=== PATIENT | male | born 1975 | race Two or more races ===

== ENCOUNTER 2016-10-27 17:37 | Emergency (ER) | payer SELFPAY ==
[~2016-10-27] VITALS: Ht 182.9 cm; Wt 83.9 kg
--- NOTE | 2016-10-27 17:54 | NUR ---
EKG IN PROGRESS
[2016-10-27 17:57] VITALS: BP 133/94
== END 2016-10-27 18:04 | disposition home or self-care (01) ==
LOC: ER 17:38
DX: R42 Dizziness and giddiness (principal); Z76.5 Malingerer [conscious simulation]
CPT/HCPCS: 93005; 99283; A4606; Z7610

== ENCOUNTER 2016-11-12 03:36 | Emergency (ER) | payer OTHER ==
[~2016-11-12] VITALS: Ht 177.8 cm; Wt 63.5 kg
--- NOTE | 2016-11-12 03:50 | NUR ---
PT BIBSELF, AMBULATORY TO ER BED 8 PT C/O BILATERAL ELBOW PAIN X 1 DAY PT DENIES INJURY OR TRAUMA. PT AOX4 RR EVEN AND UNLABORED. NO SOB NOTED. NAD NOTED. NO NVD AT THIS TIME. PT GOWNED AND PLACED ON MONITOR WAITING FOR MD VINSON.
--- NOTE | 2016-11-12 03:52 | NUR ---
DR. LI AT BEDSIDE FOR EVAL.
[2016-11-12] MEDS ORDERED: ACETAMINOPHEN 325 MG TABLET PO ONE (04:00)
[2016-11-12] MEDS ORDERED: ACETAMINOPHEN 325 MG TABLET ONE (04:06)
--- NOTE | 2016-11-12 05:00 | NUR ---
PT RESTING IN ER BED, NAD NOTED, WILL CONTINUE TO MONITOR
[2016-11-12 06:03] VITALS: BP 110/53
--- NOTE | 2016-11-12 06:03 | NUR ---
Patient discharged to home in stable condition. Written and verbal after care instructions given. Patient verbalizes understanding of instruction. PT ambulatory with a steady gait VITAL SIGNS WITHIN NORMAL LIMITS.
== END 2016-11-12 06:04 | disposition home or self-care (01) ==
LOC: ER 03:37
DX: M25.522 Pain in left elbow (principal); M25.521 Pain in right elbow; F10.129 Alcohol abuse with intoxication, unspecified; Z76.5 Malingerer [conscious simulation]
CPT/HCPCS: 99282; A4606; Z7610

== ENCOUNTER 2021-10-28 04:08 | Emergency (ER) | payer MEDICAID, OTHER ==
[~2021-10-28] VITALS: Ht 188 cm; Wt 78.0 kg
--- NOTE | 2021-10-28 05:01 | NUR ---
PT CALLED TO TRIAGE NO ANSWER
--- NOTE | 2021-10-28 05:15 | NUR ---
CALLED TO TRIAGE NO ANSWER
--- NOTE | 2021-10-28 06:55 | NUR ---
patient left triage room. pt returned.
--- NOTE | 2021-10-28 07:28 | NUR ---
PATIENT BIB SELF. C/O NECK PAIN AND STIFFNESS FOR MONTH AND A HALF. VSS. A/O X4. SEEN BY DR HUFFMAN.
[2021-10-28] MEDS ORDERED: IBUP-1957 PO (07:50)
[2021-10-28] MEDS ORDERED: KETOROLAC TROMETHAMINE INJ 30 MG/ML VIAL ONE (07:50)
[2021-10-28] MEDS ORDERED: CYCL5TAB PO (07:50)
[2021-10-28] MEDS ORDERED: CYCLOBENZAPRINE 10 MG TABLET ONE (07:51)
[2021-10-28] MEDS ORDERED: CYCLOBENZAPRINE 10 MG TABLET PO ONE (08:00)
[2021-10-28] MEDS ORDERED: KETOROLAC TROMETHAMINE INJ 30 MG/ML VIAL IM ONE (08:00)
[2021-10-28 08:05] VITALS: BP 134/79
== END 2021-10-28 08:06 | disposition home or self-care (01) ==
LOC: ER 04:10
DX: S13.4XXA Sprain of ligaments of cervical spine, initial encounter (principal); X58.XXXA Exposure to other specified factors, initial encounter; Y93.89 Activity, other specified; Y92.89 Other specified places as the place of occurrence of the external cause; Y99.8 Other external cause status
CPT/HCPCS: 96372; 99283; J1885

== ENCOUNTER 2022-06-18 19:16 | Emergency (ER) | payer MEDICAID ==
[~2022-06-18] VITALS: Ht 188 cm; Wt 89.8 kg
[~2022-06-18 19:16] MED LIST: CYCL5TAB PO; IBUP-1957 PO
[2022-06-18 20:59] VITALS: BP 129/83
[2022-06-18] MEDS ORDERED: CARB15DR12 EACH EAR (21:21)
== END 2022-06-18 22:18 | disposition home or self-care (01) ==
LOC: ER 19:17
DX: H93.13 Tinnitus, bilateral (principal); Z60.2 Problems related to living alone; Z79.899 Other long term (current) drug therapy

== ENCOUNTER 2024-08-18 17:16 | Emergency (ER) | payer MEDICAID ==
[~2024-08-18] VITALS: Ht 188 cm; Wt 86.2 kg
[~2024-08-18 17:16] MED LIST changes: +CARB15DR12 EACH EAR
[2024-08-18 18:14] VITALS: BP 114/69; TEMP 98.4; O2SAT 97
[2024-08-18] MEDS ORDERED: IBUPROFEN 600 MG TABLET ONE (18:54)
[2024-08-18] MEDS: IBUPROFEN 600 MG TABLET PO ONE (18:56)
== END 2024-08-18 20:39 | disposition home or self-care (01) ==
LOC: ER 17:24
DX: M25.521 Pain in right elbow (principal); M54.2 Cervicalgia; Z79.1 Long term (current) use of non-steroidal anti-inflammatories (NSAID); Z88.0 Allergy status to penicillin; Z79.899 Other long term (current) drug therapy
CPT/HCPCS: 73080-TC